=== PATIENT | male | born 1995 | race African-American/Black ===

== ENCOUNTER 2024-08-06 21:51 | Emergency (ER) | payer OTHER ==
[~2024-08-06] VITALS: Ht 170.2 cm; Wt 65.9 kg
[2024-08-06 22:01] VITALS: TEMP 98
[2024-08-07] VITALS: BP 101/73; O2SAT 98
== END 2024-08-07 00:11 | disposition home or self-care (01) ==
LOC: M ED 21:51
DX: T50.901A Poisoning by unspecified drugs, medicaments and biological substances, accidental (unintentional), initial encounter (principal); F17.200 Nicotine dependence, unspecified, uncomplicated; F10.10 Alcohol abuse, uncomplicated; Y92.149 Unspecified place in prison as the place of occurrence of the external cause; Y93.89 Activity, other specified; Y99.9 Unspecified external cause status